=== PATIENT | female | born 1960 | race Caucasian/White ===

== ENCOUNTER 2018-05-01 08:26 | Inpatient (IN) | payer BC, OTHER ==
[2018-05-01] MEDS ORDERED: NS 1,000 ML IV ONE ×2 (08:39→10:09)
[2018-05-01] MEDS ORDERED: ONDANSETRON 4 MG/2 ML VIAL IVP ONE ×2 (08:39→12:01)
[2018-05-01] MEDS ORDERED: HYDROmorphONE/DILAUDID 2 MG/ML INJ IVP ONE (08:53)
--- NOTE | 2018-05-01 08:54 | EDPHY ---
H & P Time Seen by Provider: 05/01/18 08:38 HPI/ROS: CHIEF COMPLAINT: Abdominal pain, vomiting HISTORY OF PRESENT ILLNESS: 57-year-old female with a past history of ovarian CA, metastatic to liver, spleen, currently on oral chemotherapy, and recent diagnosis of portal vein thrombus presents reporting abdominal pain which developed yesterday afternoon and vomiting which developed at 9:30 a.m. Last night. Patient has had no fevers or diarrhea. Unable to tolerate oral fluids. In the frame fixer hours, will rushing to the bathroom, she stumbled on a rug and fell forward striking her face on the ground. She reports lightheadedness and dizziness with standing or sitting. No other ill contacts. Family thinks it may be related to food poisoning. Patient denies palpitations, urinary complaints, headache. Reports her abdominal pain is 8/10. REVIEW OF SYSTEMS: A comprehensive 10 system review of systems was reviewed and is otherwise negative aside from elements mentioned in the history of present illness. PAST MEDICAL HISTORY: Ovarian cancer, status post hysterectomy, oophorectomy, splenectomy and liver resection. Initially treated with chemotherapy. Currently on oral oral chemotherapy. Portal vein thrombus currently on Lovenox SOCIAL HISTORY: . Here with her . VITAL SIGNS Reviewed by me. GENERAL: Uncomfortable appearing, preferring to lay curled in a position. Reporting abdominal pain. HEENT: Head is atraumatic. Patient has a superficial laceration on the upper lip as well as ecchymosis on the lower lip just to the left of midline. No suturable laceration, no gum trauma, no dental trauma. Occlusion is normal. No other facial trauma. Pupils equal round reactive to light. No icterus. No injection. Mouth: Dry mucous membranes. No erythema or lesions. Neck: supple with no adenopathy. Nontender to palpation. LUNGS: Breath sounds are clear anteriorly. Faint crackles auscultated at the left lateral lung cordova. Patient reports feeling too ill to sit up for a pulmonary exam. CARDIAC: Regular rate and rhythm, no rubs, murmurs or gallops. ABDOMEN: Diffusely distended, infraumbilical tenderness to palpation. No guarding. Markedly diminished bowel sounds. No fluid wave. Ecchymosis present from Lovenox injections. BACK: No CVA tenderness. EXTREMITIES: No trauma. No edema. Range of motion is normal throughout. NEURO: Alert and oriented, normal motor strength. Normal sensation throughout. Nonfocal. SKIN: Warm and dry, no rash. PSYCHIATRIC: Normal mentation, no agitation. - Medical/Surgical History Hx Asthma: No Hx Chronic Respiratory Disease: No Hx Diabetes: No Hx Cardiac Disease: No Hx Renal Disease: No Hx Cirrhosis: No Hx Alcoholism: No Hx HIV/AIDS: No Hx Splenectomy or Spleen Trauma: Yes Other PMH: PSHx: c section, appy, lap hysterectomy, liver section removed, splenectomy. PMHx: ovarian cancer - Social History Smoking Status: Former smoker Constitutional: Initial Vital Signs Temperature (C) 37 C 05/01/18 08:35 Heart Rate 68 05/01/18 08:35 Respiratory Rate 18 05/01/18 08:35 Blood Pressure 146/89 H 05/01/18 08:35 O2 Sat (%) 98 05/01/18 08:35 O2 Delivery Mode Room Air O2 (L/minute) 2 Allergies/Adverse Reactions: No Known Allergies Allergy (Unverified 07/04/16 22:47) Home Medications: Medication Instructions Recorded Acetaminophen [Tylenol ES 500 mg 500 mg PO Q6 PRN 05/01/18 (*)] Enoxaparin [Lovenox 80 MG (*)] 65 mg SQ BID 05/01/18 Farletuzumab 1 dose IV Q7D 05/01/18 Herbals/Supplements -Info Only 1 ea PO DAILY 05/01/18 Letrozole [Femara 2.5 mg (*)] 2.5 mg PO DAILY 05/01/18 Medical Decision Making - Diagnostics Imaging Results: Imaging Impressions Abdomen CT 05/01/18 08:53 Impression: 1. Findings compatible with mesenteric metastatic disease within the right lower quadrant in the deep central pelvis, as above. Associated moderate mechanical small bowel obstruction. 2. Prior right portal vein thrombosis. 3. Prior splenectomy with mild soft tissue nodularity in the splenic bed. Results called to Dr. Li at 10:20 a.m. Abdomen X-Ray 05/01/18 12:28 Impression: 1. Nasogastric tube extends to the gastric fundus. ED Course/Re-evaluation: Patient had an IV placed. She received Dilaudid as well as Zofran. Initial laboratory evaluation demonstrates a creatinine of 0.8, calcium of 11.2. The patient's CBC will be performed at the [facility]. Patient's CT scan of the abdomen pelvis with IV contrast demonstrates multiple implants in the mesentery including 5 x 5 cm right lower quadrant and a 6.5 cm deep in the pelvis. Patient has moderate small bowel distention and evidence of a partial small-bowel obstruction. On re-examination, patient is feeling much improved. Her abdomen is softer and her pain has improved. She tells me that she has known mesenteric implants but does not recall the size. She asks me to contact the gynecologic oncology department at the [facility]. Discussed with Annalee, on-call for the gynecologic oncology service at [facility]. Will discussed with physician on-call. Recommendations for consideration of an NG to, NPO status, fluids, pain meds, antiemetics. Patient is not improving within 48 hr will consider transfer to [facility] for operative management. Dr. Jose Luque, general surgery, aware the patient's admission. Happy to consult if needed. Of note, patient lactic acid obtained which returns at 3.6. 12 30: Patient request to go by POV to [facility] for admission. Her will drive her. NG tube has been placed. Differential Diagnosis: Differential diagnosis of the patient's abdominal pain and vomiting was considered including but not limited to gastroenteritis, gastritis, bowel obstruction, pancreatitis, medication side effect. Consult/Admit Bed Type: Dr. Escudero, med surg - Data Points Laboratory Results: Laboratory Results 05/01/18 08:50 05/01/18 05/01/18 05/01/18 11:40 09:37 09:05 WBC RBC Hgb Hct MCV MCH MCHC RDW Plt Count MPV Neut % (Auto) Lymph % (Auto) Haywood % (Auto) Eos % (Auto) Baso % (Auto) Nucleat RBC Rel Count Absolute Neuts (auto) Absolute Lymphs (auto) Absolute Monos (auto) Absolute Eos (auto) Absolute Basos (auto) Absolute Nucleated RBC Immature Gran % Immature Gran # PT INR POC Sodium 141 mEq/L mEq/L (135-145) POC Potassium 4.0 mEq/L mEq/L (3.3-5.0) POC Chloride 96.0 mEq/L L mEq/L (97-110) POC Total CO2 23 mEq/L mEq/L (22-31) POC BUN 13 mg/dL mg/dL (7-23) POC Creatinine 0.8 mg/dL mg/dL (0.6-1.0) POC Glucose 185 mg/dL H mg/dL (70-100) POC Lactic Acid William 3.6 mmol/L H mmol/L (0.7-2.1) POC Calcium 11.2 mg/dL H mg/dL (8.5-10.4) Calcium Phosphorus POC Total Bilirubin 0.5 mg/dL mg/dL (0.1-1.4) POC GGT 18 IU/L IU/L (5-65) POC AST 32 IU/L IU/L (14-46) POC ALT 18 IU/L IU/L (9-52) POC Alk Phosphatase 79 IU/L IU/L (38-126) POC Troponin I POC Total Protein 8.1 g/dL g/dL (6.3-8.2) POC Albumin 4.8 g/dL g/dL (3.5-5.0) Albumin POC Amylase 60 IU/L IU/L (30-110) Lipase 05/01/18 05/01/18 05/01/18 09:01 08:50 08:50 WBC 10.51 10^3/uL H 10^3/uL (3.80-9.50) RBC 4.41 10^6/uL 10^6/uL (4.18-5.33) Hgb 15.0 g/dL g/dL (12.6-16.3) Hct 43.4 % % (38.0-47.0) MCV 98.4 fL fL (81.5-99.8) MCH 34.0 pg pg (27.9-34.1) MCHC 34.6 g/dL g/dL (32.4-36.7) RDW 13.0 % % (11.5-15.2) Plt Count 411 10^3/uL H 10^3/uL (150-400) MPV 10.4 fL fL (8.7-11.7) Neut % (Auto) 80.7 % H % (39.3-74.2) Lymph % (Auto) 15.9 % % (15.0-45.0) Haywood % (Auto) 2.9 % L % (4.5-13.0) Eos % (Auto) 0.0 % L % (0.6-7.6) Baso % (Auto) 0.2 % L % (0.3-1.7) Nucleat RBC Rel Count 0.0 % % (0.0-0.2) Absolute Neuts (auto) 8.49 10^3/uL H 10^3/uL (1.70-6.50) Absolute Lymphs (auto) 1.67 10^3/uL 10^3/uL (1.00-3.00) Absolute Monos (auto) 0.30 10^3/uL 10^3/uL (0.30-0.80) Absolute Eos (auto) 0.00 10^3/uL L 10^3/uL (0.03-0.40) Absolute Basos (auto) 0.02 10^3/uL 10^3/uL (0.02-0.10) Absolute Nucleated RBC 0.00 10^3/uL 10^3/uL (0-0.01) Immature Gran % 0.3 % % (0.0-1.1) Immature Gran # 0.03 10^3/uL 10^3/uL (0.00-0.10) PT INR POC Sodium POC Potassium POC Chloride POC Total CO2 POC BUN POC Creatinine POC Glucose POC Lactic Acid William POC Calcium Calcium 11.1 mg/dL H mg/dL (8.5-10.4) Phosphorus 4.2 mg/dL mg/dL (2.5-4.5) POC Total Bilirubin POC GGT POC AST POC ALT POC Alk Phosphatase POC Troponin I 0.00 ng/mL ng/mL (0.00-0.08) POC Total Protein POC Albumin Albumin 4.8 g/dL g/dL (3.5-5.0) POC Amylase Lipase 05/01/18 05/01/18 08:50 08:50 WBC RBC Hgb Hct MCV MCH MCHC RDW Plt Count MPV Neut % (Auto) Lymph % (Auto) Haywood % (Auto) Eos % (Auto) Baso % (Auto) Nucleat RBC Rel Count Absolute Neuts (auto) Absolute Lymphs (auto) Absolute Monos (auto) Absolute Eos (auto) Absolute Basos (auto) Absolute Nucleated RBC Immature Gran % Immature Gran # PT 13.0 SEC SEC (12.0-15.0) INR 0.96 (0.83-1.16) POC Sodium POC Potassium POC Chloride POC Total CO2 POC BUN POC Creatinine POC Glucose POC Lactic Acid William POC Calcium Calcium Phosphorus POC Total Bilirubin POC GGT POC AST POC ALT POC Alk Phosphatase POC Troponin I POC Total Protein POC Albumin Albumin POC Amylase Lipase 97 IU/L IU/L (23-300) Medications Given: Sodium Chloride (Ns) 1,000 mls @ 125 mls/hr IV CONT GREY Stop: 10/28/18 14:44 Last Admin: 05/01/18 15:34 Dose: 1,000 mls Discontinued Medications Hydromorphone HCl (Dilaudid) 1 mg IVP EDNOW ONE Stop: 05/01/18 08:54 Last Admin: 05/01/18 09:04 Dose: 1 mg Hydromorphone HCl (Dilaudid) 1 mg IVP EDNOW ONE Stop: 05/01/18 12:06 Last Admin: 05/01/18 12:06 Dose: 1 mg Sodium Chloride (Ns) 1,000 mls @ 0 mls/hr IV ONCE ONE; Wide Open PRN Reason: Protocol Stop: 05/01/18 08:40 Last Admin: 05/01/18 09:00 Dose: 1,000 mls Sodium Chloride (Ns) 1,000 mls @ 0 mls/hr IV ONCE ONE PRN Reason: Wide Open Stop: 05/01/18 10:10 Last Admin: 05/01/18 10:21 Dose: 1,000 mls Ondansetron HCl (Zofran) 4 mg IVP EDNOW ONE Stop: 05/01/18 08:40 Last Admin: 05/01/18 09:01 Dose: 4 mg Ondansetron HCl (Zofran) 4 mg IVP ONCE ONE Stop: 05/01/18 12:02 Last Admin: 05/01/18 12:06 Dose: 4 mg Point of Care Test Results: Chemistry 05/01/18 05/01/18 05/01/18 09:37 09:05 09:01 POC Sodium 141 mEq/L mEq/L (135-145) POC Potassium 4.0 mEq/L mEq/L (3.3-5.0) POC Chloride 96.0 mEq/L L mEq/L (97-110) POC Total CO2 23 mEq/L mEq/L (22-31) POC BUN 13 mg/dL mg/dL (7-23) POC Creatinine 0.8 mg/dL mg/dL (0.6-1.0) POC Glucose 185 mg/dL H mg/dL (70-100) POC Calcium 11.2 mg/dL H mg/dL (8.5-10.4) POC Total Bilirubin 0.5 mg/dL mg/dL (0.1-1.4) POC GGT 18 IU/L IU/L (5-65) POC AST 32 IU/L IU/L (14-46) POC ALT 18 IU/L IU/L (9-52) POC Alk Phosphatase 79 IU/L IU/L (38-126) POC Troponin I 0.00 ng/mL ng/mL (0.00-0.08) POC Total Protein 8.1 g/dL g/dL (6.3-8.2) POC Albumin 4.8 g/dL g/dL (3.5-5.0) POC Amylase 60 IU/L IU/L (30-110) Blood Gas/Lactic Acid-Venous 05/01/18 11:40 POC Lactic Acid William 3.6 mmol/L H mmol/L (0.7-2.1) Liver Function Tests LFT Collection Date 05/01/18 LFT Collection Time 08:50 Departure - Departure Disposition: [facility] Inpatient Acute Clinical Impression: Partial small bowel obstruction Abdominal pain Qualifiers: Abdominal location: generalized Qualified Code(s): R10.84 - Generalized abdominal pain Condition: Fair
[2018-05-01] MEDS ORDERED: IOPAMIDOL (ISOVUE-300) 100 ML BTL ONE (09:18)
[2018-05-01 09:53] LABS: PLATELET COUNT 411 10^3/uL (150-400)
[2018-05-01 10:04] LABS: INR 0.96 (0.83-1.16)
[2018-05-01] MEDS ORDERED: HYDROmorphONE/DILAUDID 1 MG/ML INJ ONE (11:53)
[2018-05-01] MEDS ORDERED: ONDANSETRON 4 MG/2 ML VIAL ONE (11:53)
[2018-05-01] MEDS ORDERED: HYDROmorphONE/DILAUDID 1 MG/ML INJ IVP ONE (12:05)
[2018-05-01] MEDS ORDERED: PROMETHAZINE HCL 25 MG/ML INJ IVP PRN (14:45)
[2018-05-01] MEDS ORDERED: ONDANSETRON DISINTEGRATING 4 MG TAB PO PRN (14:45)
[2018-05-01] MEDS ORDERED: ONDANSETRON 4 MG/2 ML VIAL IVP PRN (14:45)
[2018-05-01] MEDS ORDERED: HYDROmorphONE/DILAUDID 1 MG/ML INJ IVP PRN (14:45)
--- NOTE | 2018-05-01 15:24 | GHP ---
DATE OF ADMISSION: 05/01/2018 The patient is a pleasant 57-year-old female with a long history of metastatic ovarian cancer. She h as had multiple abdominal surgeries. She recently had been in a trial on farletuzumab, but that was discontinued, and she has just recently been started on letrozole. She was feeling well until recent ly when she developed some nausea and vomiting and bloating. She said she tripped and fell and lande d on her face. She has been unable to tolerate orals since then. She presented to the emergency dep artment where abdominal CT showed small bowel obstruction. She has no previous history of small-karen l obstruction. She had numerous abdominal surgeries, and she has no mets in her mesentery. She has not had any hematemesis or coffee-ground emesis. She has not had fever, chills. She is not short of breath. REVIEW OF SYSTEMS: Complete 10-point review of systems conducted and negative except as noted in the HPI. PAST MEDICAL HISTORY: Ovarian cancer. Multiple surgeries including splenectomy and resection of a l iver met. Pulmonary embolism in November of this year, on enoxaparin. ALLERGIES: Paper tape. MEDICATIONS: Tylenol, enoxaparin 65 b.i.d., letrozole. SOCIAL HISTORY: Quit smoking 10 years ago. Rare alcohol. Lives in [place] with her . FAMILY HISTORY: Notable for heart disease. PHYSICAL EXAMINATION: VITAL SIGNS: Temp 37, blood pressure 146/89, pulse 68, breathing 18 times a m inute, 98% on room air. GENERAL: No acute distress. HEENT: Sclerae anicteric. Oropharynx clear. She has an NG tube. NECK: Supple, without lymphadenopathy or JVD. LUNGS: Clear to auscultation bi laterally. HEART: S1, S2. Not tachycardic. ABDOMEN: Soft. Bowel sounds are present but hypoacti ve. They are high pitched. There is no rebound or guarding. It is distended. EXTREMITIES: Lower extremities without edema. Calves nontender. SKIN: Without rash. NEUROLOGIC: Nonfocal. LABS: Showed sodium 141, potassium 4.0, chloride 96, bicarb 23, BUN 13, creatinine 0.8, glucose 185. Calcium is elevated at 11.1. Albumin is 4.8, lipase 97. LFTs are normal. INR is 0.96. White cou nt 10.5, hematocrit 43.4, platelets are 411,000. Abdominal CT images reviewed and interpreted by me show mesenteric metastatic disease within the right lower quadrant with mechanical small bowel obstru ction. She has known portal vein thrombosis. Subsequent abdominal x-ray shows NG tube in the stomac h. EKG interpreted by me shows sinus at 62 with borderline left axis deviation, normal intervals, no ST or T-wave changes. I have discussed the case with Dr. Indigo Li. ASSESSMENT/PLAN: A 57-year-old female with known metastatic ovarian cancer here with small bowel obs truction. 1. Small bowel obstruction. This is mechanical and mild. She has a nasogastric tube. We will prov jose her with IV fluids, IV antiemetics, IV pain medicine. She has no evidence of mesenteric ischemia . Does not have peritoneal signs. We will follow her clinically. 2. Hypercalcemia. The patient is a bit volume depleted and that may be the cause. However, given h er metastatic cancer, this is a concerning finding. I did discuss this with her. I sent a PTH, PTH RP, and will volume resuscitate her and follow up in the morning. 3. Known history of pulmonary embolism. Continue her low-molecular heparin. 4. Portal vein thrombosis. She is on low-molecular heparin. 5. Prophylaxis. Therapeutically anticoagulated. DISPOSITION: Inpatient status. /[id number]/MODL
[2018-05-01] MEDS: NS 1,000 ML IV SCH ×2 (15:34→23:22)
--- NOTE | 2018-05-01 15:43 | ASMTCMCOM ---
CM Note CM Note Notes: Pt presents to ER with abdominal pain, she has a hx of ovarian cancer. Admitted for small bowel obstruction, treating with NG tube. Pt is otherwise independent, antcipate she will dc home w/support of when medically stable, CM available for any changes. DC Plan: Independent Date Signed: 05/01/2018 03:43 PM Electronically Signed By:Gladys Alonso RN
--- NOTE | 2018-05-01 15:46 | PDMN ---
Medical Necessity Medical necessity: Pt meets inpt criteria per MD order and MCG M-210, Intestinal Obstruction, 2 days. 57 y/o w/metastatic ovarian cancer admitted w/ partial small bowel obstruction per abd CT and hypercalcemia. NG tube in place, IVF, IV antiemetics, IV pain meds, follow labs. Anticipate>2MN for ongoing monitoring/treatment.
[2018-05-01] MEDS: HYDROmorphONE/DILAUDID 1 MG/ML INJ IVP PRN ×2 (18:18→23:45)
[2018-05-01] MEDS: ENOXAPARIN 60 MG/0.6 ML SYR SC SCH (20:35)
[2018-05-01] MEDS: PHENOL 177 ML THROAT SPRAY PO PRN (23:23)
[2018-05-02] MEDS: HYDROmorphONE/DILAUDID 1 MG/ML INJ IVP PRN ×2 (04:57→21:26)
[2018-05-02 05:21] LABS: PLATELET COUNT 364 10^3/uL (150-400)
[2018-05-02] MEDS: NS 1,000 ML IV SCH ×2 (06:43→23:24)
[2018-05-02] MEDS: PHENOL 177 ML THROAT SPRAY PO PRN (06:43)
[2018-05-02] MEDS ORDERED: Herbals/Supplements -Info Only PO SCH (09:00)
[2018-05-02] MEDS: ACETAMINOPHEN 325 MG TAB PO PRN ×3 (09:17→20:35)
[2018-05-02] MEDS: ENOXAPARIN 60 MG/0.6 ML SYR SC SCH ×2 (09:21→20:35)
[2018-05-02] MEDS: LETROZOLE 2.5 MG TAB PO SCH (09:25)
--- NOTE | 2018-05-02 12:24 | ASMTCMCOM ---
CM Note CM Note Notes: Patient plan of care reviewed in interdisciplinary rounds. 57 year old female with history of ovarian cancer presented to the ED with symptoms of SBO. Responding to treatments. No therapies ordered but up independently walking and to shower. CM to follow for needs, Plan: DC to home when medically cleared for discharge. Date Signed: 05/02/2018 12:24 PM Electronically Signed By:Jennifer Romeo RN
--- NOTE | 2018-05-02 13:49 | HOSPPROG ---
Hospitalist Progress Note Assessment/Plan: 57yo F with metastatic ovarian cancer s/p multiple abdominal surgeries presented with nausea/vomiting found to have small bowel obstruction on imaging. #Small bowel obstruction: Acute, mild. Mechanical. Non-surgical abdomen. - Keep NG tube in place - IVF, IV anti-emetics, IV pain medications #? coffee-ground emesis: Noted in NG - Start IV PPI daily, monitor H/H in AM #Hypercalcemia: Improved. More likely due to dehydration. Elevated PTH makes hyperparathyroidism a possibility, defer work up to outpatient setting. - IVF - Follow up PTHrp #Metastatic ovarian cancer: Followed at [facility], Dr Pat. #H/o PE, PVT: Continue LMWH, pharmacy helping with dosing Diet: sips VTE ppx: therapeutic anticoag Code: full Dispo: Remain inpatient for mgmt of above. Subjective: Doing a little better. NGT still putting out significant amount, she has noticed some red streaks and dark color to it this AM. Abd pain tolerable but still present. No flatus or BM. Objective: Vital Signs Temp Pulse Resp BP Pulse Ox 37.3 C 65 16 130/79 H 90 L 05/02/18 11:39 05/02/18 09:02 05/02/18 09:02 05/02/18 09:02 05/02/18 09:02 Laboratory Results 05/02/18 05:00 05/02/18 05:00 05/01/18 05/02/18 05/03/18 05:59 05:59 05:59 Intake Total 3639 Output Total 1080 Balance 2559 PT 13.0 SEC (12.0-15.0) 05/01/18 08:50 INR 0.96 (0.83-1.16) 05/01/18 08:50 - Physical Exam Constitutional: no apparent distress, appears nourished, not in pain Eyes: PERRL, anicteric sclera, EOMI Ears, Nose, Mouth, Throat: moist mucous membranes, hearing normal, ears appear normal, no oral mucosal ulcers, other (NGT in place) Cardiovascular: regular rate and rhythym, no murmur, rub, or gallop Respiratory: no respiratory distress, no rales or rhonchi, clear to auscultation Gastrointestinal: other (absent bowel sounds, nontender, non-peritoneal) Skin: no rashes or abrasions, no fluctuance, no induration Neurologic: AAOx3, sensation intact bilaterally Psychiatric: interacting appropriately, not anxious, not encephalopathic, thought process linear ICD10 Worksheet Patient Problems: Problems Problem Status Onset Abdominal pain Acute Partial small bowel obstruction Acute
[2018-05-02] MEDS: PANTOPRAZOLE SODIUM 40 MG VIAL IVP SCH (17:22)
--- NOTE | 2018-05-02 18:23 | PDCONSULT ---
Melange[facility] Operator Note: Patient is a 57-year-old female with a history of recurrent stage IIIc ovarian cancer admitted for metastatic small bowel obstruction. Patient reports that around 9 PM on Wednesday evening she developed acute onset of right upper quadrant agonizing pain. She reports the pain is like a wave and comes and goes in nature. This is associated with the acute onset of nausea and vomiting as well every 30-40 minutes. She reports the vomitus was mainly water or food contents. At this prompted evaluation in the [facility]. There is CT of the abdomen and pelvis was done which showed mesenteric metastatic disease within the right lower quadrant in the deep pelvis with an associated moderate mechanical small bowel obstruction. Also showed chronic right portal vein thrombosis and soft tissue nodularity in the splenic bed. On presentation her calcium was also found to be mildly elevated 11.2 with albumin of 4.8. Her serum lactate was 3.6 and subsequently trended 3 with the initiation of IV fluids. Patient reports her symptoms resolved completely after NG tube placement. She has not had a bowel movement nor has she passed flatus. As mentioned patient has a history of stage IIIc ovarian cancer. She had a robotic assisted hysterectomy and staging with less than 1 cm disease on 2014. 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 Repeat CT scan on 04/11/2015 showed a liver lesion as well as a splenic hilar lesion not seen on prior CT. On 04/26/2015 she had upper abdominal debulking and splenectomy and gastrocolic omentectomy followed by IV/intraperitoneal carboplatin and paclitaxel bevacizumab and [id number] as per GOG 9923. The cytotoxic portion of the study was completed on 09/10/2015. On 05/07/2017 she has increased Ca1 25-72 CT scan showed a new soft tissue involving the vaginal cuff and adjacent sigmoid colon new nodularity in the splenic bed new mesenteric nodule adjacent to the transverse colon and nodularity in the right lower quadrant concerning for metastatic disease/carcinomatosis there is new small volume ascites as well she was started on carboplatin and Doxil plus or minus Farletuzumab. She completed 12 cycles of this regimen with last on 04/05. Her treatment was discontinued with concerns for progression with an elevated CA 125, increased from 46-109: Patient has had relatively difficult to track by resist disease. She was subsequently started on letrozole for progression on 04/26/2018 for chemotherapy break . Past Medical History: Recurrent Ovarian Cancer as above Right Portal Vein thrombosis Past Surgical History: As above Social History: She is a pack per day smoker for 20 yrs. Smokes marijuana couple times per week. No alcohol history Family History: Ashkenazi Catholic - negative BRCA. Father with "heart stuff". Physical examination: Vital signs reviewed General: No acute distress nontoxic appearing female HEENT: Nasogastric tube in place, some ecchymosis on the lip and in the nasolabial fold, pupils are equal round reactive to light no scleral icterus or conjunctival pallor is appreciated oral mucosa is moist without any evidence of oral pharyngeal lesions Cardiovascular: Regular rate and rhythm without rubs thrills gallops or murmurs Chest: Clear to auscultation and percussion in bilateral posterior lungs Abdomen: Soft, distended, tenderness to palpation in the right quadrant without rebound or guarding Extremities: Warm well perfused 2+ dorsalis pedis and radial pulses bilaterally Neurologic: Alert and oriented x3 Labs and imaging studies reviewed personally, reports are available in the EMR Assessment and plan: Patient is a 57-year-old female with a history of recurrent ovarian carcinoma with metastasis in the peritoneum admitted for malignant small bowel obstruction Problem #1malignant small bowel obstruction Patient has a focal transition point in the right lower quadrant with evidence of tethering of the small bowel to a metastatic deposit. Patient is not a surgical candidate due to extensive peritoneal/mesenteric disease. She is currently being managed conservatively with an NG tube and nothing by mouth. -If patient does not improve in the next 24-48 hours may need to discuss case with her [facility] oncologist about goals of care and the utility of further surgical management. Problem #2 -recurrent ovarian cancer Patient was recently found to have progression of disease BRCA1 25. She has been on letrozole since 04/26/2018. It is clearly too early to tell if the therapy is working or beneficial. -Follow-up with her [facility] oncologist as an outpatient
[2018-05-03] MEDS: NS 1,000 ML IV SCH ×3 (07:39→23:34)
[2018-05-03] MEDS: PANTOPRAZOLE SODIUM 40 MG VIAL IVP SCH (07:54)
[2018-05-03] MEDS: ACETAMINOPHEN 325 MG TAB PO PRN ×2 (07:55→20:27)
[2018-05-03] MEDS: LETROZOLE 2.5 MG TAB PO SCH (07:55)
[2018-05-03] MEDS: ENOXAPARIN 60 MG/0.6 ML SYR SC SCH ×2 (09:26→20:28)
--- NOTE | 2018-05-03 10:01 | HOSPPROG ---
Hospitalist Progress Note Assessment/Plan: 57yo F with metastatic ovarian cancer s/p multiple abdominal surgeries presented with nausea/vomiting found to have small bowel obstruction on imaging. #Small bowel obstruction: Improving, had small BM last night. Mechanical. Non- surgical abdomen. - Keep NG tube in place for now. Bowel rest - IVF, IV anti-emetics, IV pain medications #Dark NG output: Low suspicion for bleed but at risk for gastric irritation from NG and on anticoagulation - Continue IV PPI daily while NGT in place, monitor H/H in AM #Hypercalcemia: Improved with IVF, more likely due to dehydration. - IVF - Follow up PTHrp #Metastatic ovarian cancer: Followed at [facility], Dr Pat. Continue letrozole. #H/o PE, PVT: Continue LMWH Diet: sips VTE ppx: therapeutic anticoag Code: full Dispo: Remain inpatient for mgmt of above. Subjective: Had small BM last night, passing flatus this morning. No fevers. Abdominal pain tolerable. Objective: Vital Signs Temp Pulse Resp BP Pulse Ox 36.8 C 54 L 14 124/57 H 92 05/03/18 07:49 05/03/18 07:49 05/03/18 07:49 05/03/18 07:49 05/03/18 07:49 Laboratory Results 05/03/18 06:25 05/03/18 06:25 05/02/18 05/03/18 05/04/18 05:59 05:59 05:59 Intake Total 3639 380 1423 Output Total 1080 420 Balance 2559 -40 1423 PT 13.0 SEC (12.0-15.0) 05/01/18 08:50 INR 0.96 (0.83-1.16) 05/01/18 08:50 - Physical Exam Constitutional: no apparent distress, appears nourished, not in pain Eyes: PERRL, anicteric sclera, EOMI Ears, Nose, Mouth, Throat: other (NG tube in place draining dark fluid) Cardiovascular: regular rate and rhythym, no murmur, rub, or gallop Respiratory: no respiratory distress, no rales or rhonchi, clear to auscultation Gastrointestinal: normoactive bowel sounds, soft, non-tender abdomen, no palpable masses Skin: no rashes or abrasions, no fluctuance, no induration Neurologic: AAOx3, sensation intact bilaterally Psychiatric: interacting appropriately, not anxious, not encephalopathic, thought process linear ICD10 Worksheet Patient Problems: Problems Problem Status Onset Abdominal pain Acute Partial small bowel obstruction Acute
--- NOTE | 2018-05-03 12:55 | ASMTCMCOM ---
CM Note CM Note Notes: Patient plan of care reviewed in interdisciplinary rounds. She has improvement in symptoms of her SBO. She is followed at [place] for her oncology services. She reports she has never had palliative care consult in the past. No current needs identified. CM to follow. Plan: Home with family support when medically cleared for discharge. Date Signed: 05/03/2018 12:18 PM Electronically Signed By:Jennifer Romeo RN
--- NOTE | 2018-05-03 17:08 | SOAPPROG ---
SOAP Progress Note Assessment/Plan: Assessment and plan: Patient is a 57-year-old female with a history of recurrent ovarian carcinoma with metastasis in the peritoneum admitted for malignant small bowel obstruction Problem #1malignant small bowel obstruction Patient has a focal transition point in the right lower quadrant with evidence of tethering of the small bowel to a metastatic deposit. Patient is not a surgical candidate due to extensive peritoneal/mesenteric disease. She is currently being managed conservatively with an NG tube and nothing by mouth. -She hasn't improved much overnight, if conservative measures fail to work, patient may need venting G-tube and J-tube for feeds based on goals of care. Would want to discuss this with her [employer] oncologist. 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 She has been on letrozole since 04/26/2018. It is clearly too early to tell if the therapy is working or beneficial. -as above, future directions based on goals of care Amarjit Temple 05/03/18 17:14 Subjective: Patient reports passing some flatus this morning, small bowel movement yesterday evening. No real noticeable change as per the patient since admission. Started on a PPI by hospitalist service Objective: Vital Signs Temp Pulse Resp BP Pulse Ox 36.9 C 52 L 16 124/69 H 93 05/03/18 15:49 05/03/18 15:49 05/03/18 15:49 05/03/18 15:49 05/03/18 15:49 Microbiology 05/01/18 12:57 Urine Culture - Final Urine,Clean Catch Five Or More [place] Types Laboratory Results 05/03/18 06:25 05/03/18 06:25 05/02/18 05/03/18 05/04/18 05:59 05:59 05:59 Intake Total 3639 380 1423 Output Total 1080 420 Balance 2559 -40 1423 PT 13.0 SEC (12.0-15.0) 05/01/18 08:50 INR 0.96 (0.83-1.16) 05/01/18 08:50 Physical examination: Vital signs reviewed General: No acute distress nontoxic appearing female HEENT: Nasogastric tube in place, some ecchymosis on the lip and in the nasolabial fold, pupils are equal round reactive to light no scleral icterus or conjunctival pallor is appreciated oral mucosa is moist without any evidence of oral pharyngeal lesions Cardiovascular: Regular rate and rhythm without rubs thrills gallops or murmurs Chest: Clear to auscultation and percussion in bilateral posterior lungs Abdomen: Soft, distended, tenderness to palpation diffusely Extremities: Warm well perfused 2+ dorsalis pedis and radial pulses bilaterally Neurologic: Alert and oriented x3 ICD10 Worksheet Patient Problems: Problems Problem Status Onset Abdominal pain Acute Partial small bowel obstruction Acute
[2018-05-03] MEDS ORDERED: PETROLATUM,WHITE 28.35 GM TUBE TP PRN (17:46)
[2018-05-03] MEDS: BACITRACIN OINTMENT 1 PACKET TP SCH (20:28)
[2018-05-04] MEDS: PANTOPRAZOLE SODIUM 40 MG VIAL IVP SCH (08:22)
[2018-05-04] MEDS: LETROZOLE 2.5 MG TAB PO SCH (08:26)
[2018-05-04] MEDS: BACITRACIN OINTMENT 1 PACKET TP SCH ×2 (08:26→21:30)
[2018-05-04] MEDS: NS 1,000 ML IV SCH ×2 (08:26→15:53)
[2018-05-04] MEDS: ENOXAPARIN 60 MG/0.6 ML SYR SC SCH ×2 (08:27→21:30)
[2018-05-04] MEDS ORDERED: traMADol 50 MG TAB PO PRN (11:45)
--- NOTE | 2018-05-04 12:56 | PDDCSUM ---
Discharge Summary Discharge Summary: Date of Admission: 05/01/2018 Date of Transfer: 05/04/2018 Disposition: transfer to [facility] Hospital Consultants: oncology Procedures/Studies: NG tube placement, CT abd/pelvis Discharge Diagnoses: 1. Malignant small bowel obstruction 2. Metastatic ovarian cancer Brief Hospital Course: 57-year-old female with a history of recurrent ovarian carcinoma with metastasis in the peritoneum admitted for malignant small bowel obstruction. She has been managed conservatively with an NG tube and bowel rest however she has not significantly improved. She is passing minimal flatus. We discussed alternative options with her including venting G-tube with J-tube for feeds vs surgical management. We do not believe that she is a good surgical candidate due to extensive peritoneal/mesenteric disease. Because of the potential for surgical management, we are transferring to [facility] where gynecological oncology services are present and where her primary doctor is located (Dr Aj). Patient is agreeable to this. We did discuss with the patient that the obstruction is an ominous sign in the setting of [place]-resistant metastatic ovarian cancer. She is interested in palliative services. Hospice care was also discussed but patient and are adamant about not going this route at this time. Medications: Please refer to EMR for complete list. Physical Exam: Vitals reviewed and stable. Alert and oriented. NG tube in place. RRR without murmur on cardiac exam, lungs clear, palpable liver with abdominal tenderness but no peritoneal signs.
--- NOTE | 2018-05-04 15:23 | ASMTCMCOM ---
CM Note CM Note Notes: Patient plan of care reviewed in rounds. Seen by oncology this am. No significant improvement in SBO. May need peg tube. Patient normally receives care at the [facility] and a request for transfer to Dr. Navarro has been made. Awaiting admission bed. Records compiled Emtala form per MD and RN. CM available should other needs arise. Plan: Transfer to the via [facility] when bed assigned. Date Signed: 05/04/2018 03:12 PM Electronically Signed By:Jennifer Romeo RN
[2018-05-04] MEDS: HYDROmorphONE/DILAUDID 1 MG/ML INJ IVP PRN (18:39)
--- NOTE | 2018-05-04 20:16 | SOAPPROG ---
KENYA Progress Note Assessment/Plan: Assessment and plan: Patient is a 57-year-old female with a history of recurrent ovarian carcinoma with metastasis in the peritoneum admitted for malignant small bowel obstruction Problem #1malignant small bowel obstruction Patient has a focal transition point in the right lower quadrant with evidence of tethering of the small bowel to a metastatic deposit. Patient is not a surgical candidate due to extensive peritoneal/mesenteric disease. She is currently being managed conservatively with an NG tube and nothing by mouth. -She continues not to improve clinically. Discussed options are hospice/ supportive care, venting g-tube and TPN or surgical management (which doesn't seem johnson at this point). She seems to [facility] to be [facility] finding the above options untenable. 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 She has been on letrozole since 04/26/2018. It is clearly too early to tell if the therapy is working or beneficial. -as above, future directions based on goals of care Amarjit Temple Subjective: Patient denies much changes in her symptoms. She has been passing some flatus, she thinks holding dilaudid is helpful but still has pain. No BMs, roughly 1 L out of NG tube in last 12 hours. Objective: Vital Signs Temp Pulse Resp BP Pulse Ox 37.0 C 54 L 16 125/71 H 94 05/04/18 16:00 05/04/18 16:00 05/04/18 16:00 05/04/18 16:00 05/04/18 16:00 Microbiology 05/01/18 12:57 Urine Culture - Final Urine,Clean Catch Five Or More [place] Types Laboratory Results 05/04/18 05:10 05/04/18 05:10 05/03/18 05/04/18 05/05/18 05:59 05:59 05:59 Intake Total 380 1423 1407 Output Total 420 1000 3100 Balance -40 423 -1693 PT 13.0 SEC (12.0-15.0) 05/01/18 08:50 INR 0.96 (0.83-1.16) 05/01/18 08:50 Physical examination: Vital signs reviewed General: No acute distress nontoxic appearing female HEENT: Nasogastric tube in place, some ecchymosis on the lip and in the nasolabial fold, pupils are equal round reactive to light no scleral icterus or conjunctival pallor is appreciated oral mucosa is moist without any evidence of oral pharyngeal lesions Cardiovascular: Regular rate and rhythm without rubs thrills gallops or murmurs Chest: Clear to auscultation and percussion in bilateral posterior lungs Abdomen: Soft, distended, tenderness to palpation diffusely Extremities: Warm well perfused 2+ dorsalis pedis and radial pulses bilaterally Neurologic: Alert and oriented x3 ICD10 Worksheet Patient Problems: Problems Problem Status Onset Abdominal pain Acute Partial small bowel obstruction Acute
[2018-05-05] MEDS: NS 1,000 ML IV SCH ×2 (00:04→17:49)
[2018-05-05] MEDS: ACETAMINOPHEN 325 MG TAB PO PRN ×2 (00:06→20:41)
[2018-05-05] MEDS: LETROZOLE 2.5 MG TAB PO SCH (08:41)
[2018-05-05] MEDS: BACITRACIN OINTMENT 1 PACKET TP SCH ×2 (08:41→20:42)
[2018-05-05] MEDS: ENOXAPARIN 80 MG/0.8 ML SYR SC SCH ×2 (08:41→20:42)
[2018-05-05] MEDS: PANTOPRAZOLE SODIUM 40 MG VIAL IVP SCH (08:41)
[2018-05-05] MEDS: HYDROmorphONE/DILAUDID 1 MG/ML INJ IVP PRN (14:28)
[2018-05-05] MEDS ORDERED: LIDOCAINE 2% VISCOUS 15 ML UDCUP PO PRN (15:00)
--- NOTE | 2018-05-05 16:16 | ASMTCMCOM ---
CM Note CM Note Notes: Patient plan of care reviewed with MD. Plan to dc to [place] when bed available. MUltiple calls placed to [place] to inquire about bed availability. No current available bed. Emtala in chart. customer supply coordinator can call [facility] if bed becomes available. Emotional support provided. CM available should other needs arise. Plan: Transfer to [place] Date Signed: 05/05/2018 04:16 PM Electronically Signed By:Jennifer Romeo RN
--- NOTE | 2018-05-05 17:16 | HOSPPROG ---
Hospitalist Progress Note Assessment/Plan: 57yo F with metastatic ovarian cancer s/p multiple abdominal surgeries presented with nausea/vomiting found to have small bowel obstruction on imaging. #Malignant small bowel obstruction: No significant improvement, passing some flatus. Non-surgical abdomen. Managing conservatively - Keep NG tube in place for now. Bowel rest - IVF, IV anti-emetics, IV pain medications PRN - Discussed alternative options with her including venting G-tube with J- tube for feeds vs surgical management. Not good surgical candidate due to extensive peritoneal/mesenteric disease. #Dark NG output: Improved. Low suspicion for bleed but at risk for gastric irritation from NG and on anticoagulation - Continue IV PPI daily while NGT in place, H/H stable #Hypercalcemia: Improved with IVF, most likely due to dehydration. - IVF - PTHrp normal #Metastatic ovarian cancer: Followed at [facility], Dr Pat. Continue letrozole. #H/o PE, PVT: Continue LMWH Diet: sips VTE ppx: therapeutic anticoag Code: full Dispo: Transfer to [facility] where gynecological oncology services are present and where her primary doctor is located (Dr Aj). She has been awaiting a bed to open up there for >24 hours. Subjective: Didn't get transferred to [facility] yesterday, no beds available. Passing minimal flatus, no BMs. Abdominal pain present but tolerable. Having lots of throat pain. Objective: Vital Signs Temp Pulse Resp BP Pulse Ox 37.7 C 84 17 145/85 H 91 L 05/05/18 15:57 05/05/18 15:57 05/05/18 15:57 05/05/18 15:57 05/05/18 15:57 Laboratory Results 05/04/18 05:10 05/04/18 05:10 05/04/18 05/05/18 05/06/18 05:59 05:59 05:59 Intake Total 1423 1407 Output Total 1000 4500 900 Balance 423 -3093 -900 PT 13.0 SEC (12.0-15.0) 05/01/18 08:50 INR 0.96 (0.83-1.16) 05/01/18 08:50 - Physical Exam Constitutional: no apparent distress, appears nourished, not in pain, uncomfortable (intermittently) Eyes: PERRL, anicteric sclera, EOMI Ears, Nose, Mouth, Throat: other (NG tube in place) Cardiovascular: regular rate and rhythym, no murmur, rub, or gallop Respiratory: no respiratory distress, no rales or rhonchi, clear to auscultation Gastrointestinal: tenderness, distension, other (decreased/absent bowel sounds) , No rebound Genitourinary: no bladder fullness, no bladder tenderness, no renal bruits Skin: no rashes or abrasions, no fluctuance, no induration Musculoskeletal: full muscle strength, no muscle tenderness, normal joint ROM Neurologic: AAOx3, sensation intact bilaterally Psychiatric: interacting appropriately, not anxious, not encephalopathic, thought process linear ICD10 Worksheet Patient Problems: Problems Problem Status Onset Abdominal pain Acute Partial small bowel obstruction Acute
[2018-05-06] MEDS ORDERED: D5W 1/2 NS W/ 20 KCl/L 1,000 ML IV SCH (02:15)
[2018-05-06] MEDS: POTASSIUM Cl (KCl) 100 ML IV SCH ×3 (06:45→09:12)
[2018-05-06 07:18] VITALS: BP 133/76
[2018-05-06] MEDS: BACITRACIN OINTMENT 1 PACKET TP SCH (08:16)
[2018-05-06] MEDS: ENOXAPARIN 80 MG/0.8 ML SYR SC SCH (08:16)
[2018-05-06] MEDS: LETROZOLE 2.5 MG TAB PO SCH (08:17)
[2018-05-06] MEDS: PANTOPRAZOLE SODIUM 40 MG VIAL IVP SCH (08:17)
[2018-05-06] MEDS: ACETAMINOPHEN 325 MG TAB PO PRN (08:17)
--- NOTE | 2018-05-06 09:18 | PDDCSUM ---
Discharge Summary Discharge Summary: Date of Admission: 05/01/2018 Date of Transfer: 05/06/2018 Disposition: transfer to [facility] Hospital Consultants: oncology Procedures/Studies: NG tube placement, CT abd/pelvis Discharge Diagnoses: 1. Malignant small bowel obstruction 2. Metastatic ovarian cancer 3. H/o PE 4. Dark NG output Brief Hospital Course: 57-year-old female with a history of recurrent ovarian carcinoma with metastasis in the peritoneum admitted for malignant small bowel obstruction. She has been managed conservatively with an NG tube and bowel rest for several days however she has not significantly improved. She is passing minimal flatus with significant amount of NG output. We discussed alternative options with her including venting G-tube with J-tube for feeds vs surgical management. We do not believe that she is a good surgical candidate due to extensive peritoneal/ mesenteric disease. Because of the potential for surgical management, we are transferring to [facility] where gynecological oncology services are present and where her primary doctor is located (Dr Aj). Patient is agreeable to this. We did discuss with the patient that the obstruction is an ominous sign in the setting of [place]-resistant metastatic ovarian cancer. She is interested in palliative services. Hospice care was also discussed but patient and are adamant about not going this route at this time. She was continued on letrozole and therapeutic enoxaparin for her history of PE. She did have some dark NG output that was initially concerning for hematemesis and a PPI was started but her H/H have been stable. Medications: Please refer to EMR for complete list. Physical Exam: Vitals reviewed and stable. Alert and oriented. NG tube in place. RRR without murmur on cardiac exam, lungs clear, palpable liver with abdominal tenderness but no peritoneal signs.
--- NOTE | 2018-05-06 09:56 | ASDISCHSUM ---
Discharge Information Plan Status:Acute Transfer Medically Cleared to Leave:05/06/2018 Discharge Date:05/06/2018 CM D/C Disposition:[facility] Not [facility] ADT D/C Disposition:[facility] Projected Discharge Date:05/06/2018 Transportation at D/C:ALS/BLS Discharge Delay Reason: Follow-Up Date:05/06/2018 Discharge Slot: Final Diagnosis: Placement Information Patient Contact Information Contact Name:TONJA Relationship:Life Partner Address:[address] [place] [address] Work Phone: City:[facility] Phone: State/Zip Code:[place] [address] Email: Financial Information Financial Class:[employer] Primary Plan Desc:[employer] OPEN ACC LOCAL Primary Plan Number:[id number] Secondary Plan Desc: Secondary Plan Number: Assessment Information [facility] CM Progress Note CM Note CM Note Notes: Pt presents to ER with abdominal pain, she has a hx of ovarian cancer. Admitted for small bowel obstruction, treating with NG tube. Pt is otherwise independent, antcipate she will dc home w/support of when medically stable, CM available for any changes. DC Plan: Independent Date Signed: 05/01/2018 03:43 PM Electronically Signed By:Gladys Alonso RN [facility] CM Progress Note CM Note CM Note Notes: Patient plan of care reviewed in interdisciplinary rounds. 57 year old female with history of ovarian cancer presented to the ED with symptoms of SBO. Responding to treatments. No therapies ordered but up independently walking and to shower. CM to follow for needs, Plan: DC to home when medically cleared for discharge. Date Signed: 05/02/2018 12:24 PM Electronically Signed By:Jennifer Romeo RN [facility] CM Progress Note CM Note CM Note Notes: Patient plan of care reviewed in interdisciplinary rounds. She has improvement in symptoms of her SBO. She is followed at [facility] for her oncology services. She reports she has never had palliative care consult in the past. No current needs identified. CM to follow. Plan: Home with family support when medically cleared for discharge. Date Signed: 05/03/2018 12:18 PM Electronically Signed By:Jennifer Romeo RN [facility] CM Progress Note CM Note CM Note Notes: Patient plan of care reviewed in rounds. Seen by oncology this am. No significant improvement in SBO. May need peg tube. Patient normally receives care at the [facility] and a request for transfer to Dr. Navarro has been made. Awaiting admission bed. Records compiled Emtala form per MD and RN. CM available should other needs arise. Plan: Transfer to the via [facility] when bed assigned. Date Signed: 05/04/2018 03:12 PM Electronically Signed By:Jennifer Romeo RN [facility] CM Progress Note CM Note CM Note Notes: Patient plan of care reviewed with MD. Plan to dc to [facility] when bed available. MUltiple calls placed to [facility] to inquire about bed availability. No current available bed. Ria in chart. content coordinator can call [facility] if bed becomes available. Emotional support provided. CM available should other needs arise. Plan: Transfer to [facility] Date Signed: 05/05/2018 04:16 PM Electronically Signed By:Jennifer Romeo RN Intervention Information
--- NOTE | 2018-05-06 09:57 | ASMTLACE ---
LACE Length of stay for Answers: 4-6 days current admission Acuity / Level of Answers: Yes Care: Did the patient have an inpatient admission? Comorbidities - select Answers: Any tumor (including all that apply lymphoma or leukemia) # of Emergency department Answers: 1-2 visits in the last 6 months Score: 10 Date Signed: 05/06/2018 09:56 AM Electronically Signed By:Jennifer Romeo RN
--- NOTE | 2018-05-06 10:01 | ASMTCMCOM ---
CM Note CM Note Notes: Per RN [facility] called this am with bed assignment for patient. They are arranging transport. Patient has records. CM available should needs arise. Plan: Transfer to [facility] Date Signed: 05/06/2018 10:00 AM Electronically Signed By:Jennifer Romeo RN
== END 2018-05-06 10:23 | disposition short-term general hospital (02) | DRG 375 ==
LOC: CED 08:26 → CEDHOLD 11:11 → OBSVTOIN 12:37 → F1N 13:37
PROVIDERS: ADMIT Internal Medicine; ATTEND Internal Medicine
DX: C78.6 Secondary malignant neoplasm of retroperitoneum and peritoneum (principal); Z85.43 Personal history of malignant neoplasm of ovary; C78.7 Secondary malignant neoplasm of liver and intrahepatic bile duct; C78.89 Secondary malignant neoplasm of other digestive organs; E83.52 Hypercalcemia; Z87.891 Personal history of nicotine dependence; Z86.711 Personal history of pulmonary embolism
CPT/HCPCS: 74018-PO; 74177-PO; 80048-PO; 80076-PO; 82150-PO; 82397-90; 83605-PO; 84484-PO; 96374; J1170; J1650; J2405; J3480; Q9967

== ENCOUNTER 2018-08-24 19:35 | Emergency (ER) | payer OTHER ==
--- NOTE | 2018-08-24 19:54 | EDPHY ---
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 Mild headache, no neck pain, no neck stiffness. Pt has a port in her chest, no rash at site of port. No sore throat, no cold symptoms and no cough. Review of systems As per HPI General positive fever positive chills positive fatigue, no weakness HEENT no eye pain no eye discharge. No eye redness, no sore throat Respiratory no cough, no shortness of breath Cardiac no chest pain, no peripheral edema GI no abdominal pain, no diarrhea, no constipation, no nausea, no vomiting no flank pain, no hematuria, no dysuria Musculoskeletal positive myalgias, no joint pain Heme no easy bruising, no easy bleeding Endo no polyuria, no polydipsia Skin no rashes, no pruritus Neuro no syncope, no dizziness, no headaches Source: Patient Exam Limitations: No limitations - Personal History Current Tetanus Diphtheria and Acellular Pertussis (TDAP): Unsure - Medical/Surgical History Hx Asthma: No Hx Chronic Respiratory Disease: No Hx Diabetes: No Hx Cardiac Disease: No Hx Renal Disease: No Hx Cirrhosis: No Hx Alcoholism: No Hx HIV/AIDS: No Hx Splenectomy or Spleen Trauma: Yes Other PMH: PSHx: c section, appy, lap hysterectomy, liver section removed, splenectomy. PMHx: ovarian cancer - Family History Significant Family History: No pertinent family hx - Social History Smoking Status: Former smoker Alcohol Use: None Drug Use: None - Physical Exam Exam: 57-year-old female alert and oriented no acute distress, although she does not appear ill, she is flushed and tachycardic at a rate of 124, afebrile at, nc eomi, anicteric neck supple op no erythema , no lesions lungs cta bilat heart rapid rr 124 abd non dist , nabs , soft, nt ext no cce skin no rash Constitutional: Initial Vital Signs Temperature (C) 37.2 C 08/24/18 19:44 Heart Rate 124 H 08/24/18 19:44 Respiratory Rate 18 08/24/18 19:44 Blood Pressure 115/84 H 08/24/18 19:44 O2 Sat (%) 94 01/23/19 19:44 O2 Delivery Mode Room Air Allergies/Adverse Reactions: No Known Allergies Allergy (Unverified 07/04/16 22:47) Home Medications: Medication Instructions Recorded Bevacizumab [Avastin] 0 mg IV 08/24/18 Oseltamivir Phosphate [Tamiflu 75 75 mg PO BID #10 cap 08/24/18 mg (*)] PACLitaxel [TaxoL] 0 mg IV 08/24/18 Rivaroxaban [Xarelto] 20 mg PO BID 08/24/18 Medical Decision Making ED Course/Re-evaluation: pt seen and evaluated for fever, bodyaches of a few hours duration. influenza neg lactate 2.9 BMP wnl, no acidosis CBC wnl Pt given 2 liters IV fluids and acetaminophen 500 mg po. discussed with gyneoncology Dr Kessler, will send pt home, await urine and blood cultures Will give first dose of Tamiflu and rx for Tamiflu Imp Possible early influenza Viral syndrome Plan Home Pt to contact her gyne onc tomorrow Differential Diagnosis: Differential diagnosis considered but not limited to: Influenza, bacteremia, pneumonia, urinary tract infection, a viral syndrome, sepsis - Data Points Laboratory Results: Laboratory Results 08/24/18 20:15 08/24/18 08/24/18 08/24/18 20:25 20:21 20:15 WBC 6.75 10^3/uL 10^3/uL (3.80-9.50) RBC 4.20 10^6/uL 10^6/uL (4.18-5.33) Hgb 13.8 g/dL g/dL (12.6-16.3) Hct 40.4 % % (38.0-47.0) MCV 96.2 fL fL (81.5-99.8) MCH 32.9 pg pg (27.9-34.1) MCHC 34.2 g/dL g/dL (32.4-36.7) RDW 17.2 % H % (11.5-15.2) Plt Count 390 10^3/uL 10^3/uL (150-400) MPV 10.2 fL fL (8.7-11.7) Neut % (Auto) 73.2 % % (39.3-74.2) Lymph % (Auto) 16.3 % % (15.0-45.0) [place] % (Auto) 9.0 % % (4.5-13.0) Eos % (Auto) 0.4 % L % (0.6-7.6) Baso % (Auto) 0.7 % % (0.3-1.7) Nucleat RBC Rel Count 0.0 % % (0.0-0.2) Absolute Neuts (auto) 4.93 10^3/uL 10^3/uL (1.70-6.50) Absolute Lymphs (auto) 1.10 10^3/uL 10^3/uL (1.00-3.00) Absolute Monos (auto) 0.61 10^3/uL 10^3/uL (0.30-0.80) Absolute Eos (auto) 0.03 10^3/uL 10^3/uL (0.03-0.40) Absolute Basos (auto) 0.05 10^3/uL 10^3/uL (0.02-0.10) Absolute Nucleated RBC 0.00 10^3/uL 10^3/uL (0-0.01) Immature Gran % 0.4 % % (0.0-1.1) Immature Gran # 0.03 10^3/uL 10^3/uL (0.00-0.10) POC Sodium 139 mEq/L mEq/L (135-145) POC Potassium 4.7 mEq/L mEq/L (3.3-5.0) POC Chloride 102.0 mEq/L mEq/L (97-110) POC Total CO2 24 mEq/L mEq/L (22-31) POC BUN 12 mg/dL mg/dL (7-23) POC Creatinine 0.8 mg/dL mg/dL (0.6-1.0) POC Glucose 109 mg/dL H mg/dL (70-100) POC Lactic Acid William 2.9 mmol/L H mmol/L (0.7-2.1) POC Calcium 9.8 mg/dL mg/dL (8.5-10.4) Medications Given: Discontinued Medications Acetaminophen (Tylenol) 500 mg PO EDNOW ONE Stop: 08/24/18 20:06 Last Admin: 08/24/18 20:13 Dose: 500 mg Sodium Chloride (Ns) 1,000 mls @ 0 mls/hr IV ONCE ONE PRN Reason: Wide Open Stop: 08/24/18 20:05 Last Admin: 08/24/18 20:13 Dose: 1,000 mls Sodium Chloride (Ns) 1,000 mls @ 0 mls/hr IV ONCE ONE PRN Reason: Wide Open Stop: 08/24/18 20:35 Last Admin: 08/24/18 21:03 Dose: 1,000 mls Oseltamivir Phosphate (Tamiflu) 75 mg PO EDNOW ONE Stop: 08/24/18 21:57 Last Admin: 08/24/18 22:19 Dose: 75 mg Point of Care Test Results: Chemistry 08/24/18 20:21 POC Sodium 139 mEq/L mEq/L (135-145) POC Potassium 4.7 mEq/L mEq/L (3.3-5.0) POC Chloride 102.0 mEq/L mEq/L (97-110) POC Total CO2 24 mEq/L mEq/L (22-31) POC BUN 12 mg/dL mg/dL (7-23) POC Creatinine 0.8 mg/dL mg/dL (0.6-1.0) POC Glucose 109 mg/dL H mg/dL (70-100) POC Calcium 9.8 mg/dL mg/dL (8.5-10.4) Blood Gas/Lactic Acid-Venous 08/24/18 20:25 POC Lactic Acid William 2.9 mmol/L H mmol/L (0.7-2.1) Influenza PCR Flu Nasal Swab Collection Date 08/24/18 Flu Nasal Swab Collection Time 19:30 Influenza A Result Not Detected Influenza B Result Not Detected Urine Dip Collection Date 08/24/18 Collection Time 21:20 Specific [place] (1.002-1.030) 1.010 PH (5.0-7.5) 6.0 Leukocytes (Negative) 1+ Nitrites (Negative) Negative Protein (Negative) Negative Glucose (Negative) Negative Ketones (Negative) Negative Urobilnogen (0.2-1.0 EU) 0.2 Bilirubin (Negative) Negative Blood (Negative) 1+ Departure - Departure Disposition: Home, Routine, Self-Care Clinical Impression: Fever and chills Condition: Good Instructions: Influenza (ED), Viral Syndrome (ED) Referrals: JORGE RODRIGUEZ [Primary Care Provider] - As per Instructions Prescriptions: Oseltamivir Phosphate [Tamiflu 75 mg (*)] 75 mg PO BID #10 cap
[2018-08-24] MEDS ORDERED: NS 1,000 ML IV ONE ×2 (20:04→20:34)
[2018-08-24] MEDS ORDERED: ACETAMINOPHEN 500 MG TAB PO ONE (20:05)
[2018-08-24 21:07] LABS: PLATELET COUNT 390 10^3/uL (150-400)
[2018-08-24] MEDS ORDERED: OSELTAMIVIR PHOSPHATE 75 MG CAP PO ONE (21:56)
[2018-08-24 22:25] VITALS: BP 96/65
== END 2018-08-24 22:25 | disposition home or self-care (01) ==
LOC: CED 19:35
DX: R50.9 Fever, unspecified (principal); E86.9 Volume depletion, unspecified
CPT/HCPCS: 80048-ER; 83605-ER; 96360-ER; 96361-ER; 99284-ER